=== PATIENT | male | born 1970 | race Two or more races ===

== ENCOUNTER 2018-08-25 11:44 | Emergency (ER) | payer OTHER ==
[~2018-08-25] VITALS: Ht 182.9 cm; Wt 69.9 kg
== END 2018-08-25 16:37 | disposition home or self-care (01) ==
LOC: ER 11:44 → CPU-OBS 11:48 → ER 16:37
DX: R07.89 Other chest pain (principal); M94.0 Chondrocostal junction syndrome [Tietze]
CPT/HCPCS: G0378; G0379; 93005

== ENCOUNTER 2020-06-01 06:00 | Day surgery (SDC) | payer OTHER | END 2020-06-01 10:35 | disposition home or self-care (01) | LOC: AMB-ENDOS 06:00 | PROVIDERS: ATTEND Surgery | DX: D12.4 Benign neoplasm of descending colon (principal); K64.0 First degree hemorrhoids; Z20.822 Contact with and (suspected) exposure to COVID-19; Z12.11 Encounter for screening for malignant neoplasm of colon ==